=== PATIENT | female | born 1970 | race Caucasian/White ===

== ENCOUNTER 2023-10-30 18:47 | Emergency (ER) | payer OTHER, SELFPAY ==
[2023-10-30 19:00] VITALS: BP 121/68
[2023-10-30 19:21] LABS: % Basophils 0.5 % (0-2); % Eosinophils 1.4 % (0-6); % Immature Granulocytes 0.3 % (0-0.5); % Lymphocytes 19.8 % (20.5-51.1); % Monocytes 6.1 % (1.7-9.3); % Neutrophils 71.9 % (42.2-75.2); Absolute Basophils 0.1 10^3/uL (0-0.2); Absolute Eosinophils 0.1 10^3/uL (0-0.7); Absolute Monocytes 0.6 10^3/uL (0.1-0.6); Absolute Neutrophils 7.2 10^3/uL (1.4-6.5); Hematocrit 39.1 % (37.0-47.0); Hemoglobin 13.7 g/dL (12.0-16.0); Mean Corpuscular Hgb 28.6 pg (27.0-31.0); Mean Corpuscular Volume 81.6 fL (81.0-99.0); Mean Platelet Volume 9.6 fL (7.4-10.4); Nucleated Red Blood Cells % 0 %; Platelet Count 280 10^3/uL (130-400); Red Blood Cell Count 4.79 10^6/uL (4.20-5.40); Red Cell Dist. Width 12.2 % (11.5-14.5)
[2023-10-30 19:32] LABS: ALT (SGPT) 16 U/L (0-35); AST (SGOT) 27 U/L (14-36); Albumin 4.8 g/dl (3.5-5.0); Alkaline Phosphatase 115 U/L (38-126); Blood Urea Nitrogen 30 mg/dl (7-17); Calcium 9.7 mg/dl (8.4-10.2); Carbon Dioxide 23 mmol/L (22-30); Chloride 105 mmol/L (98-107); Glucose 98 mg/dl (70-99); Sodium 138 mmol/L (135-145); Total Bilirubin 0.7 mg/dl (0.2-1.3); Total Protein 7.5 g/dl (6.3-8.2); eGFR > 60.00
[2023-10-30 19:36] LABS: Urine Albumin Trace (Neg - Trace); Urine Bilirubin 1+ (Negative); Urine Character Clear (Clear); Urine Color Amber; Urine Glucose Negative (Negative); Urine Ketone 2+ (Negative); Urine Leukocyte 2+ (Negative); Urine Nitrite Negative (Negative); Urine Occult Blood Trace (Negative); Urine Urobilinogen 2+ (Neg - 1+)
[2023-10-30 19:55] LABS: Urine White Cell 16-20 /HPF (0-5)
[2023-10-30 21:42] VITALS: BMI 28.7
--- NOTE | 2023-10-30 21:56 | ED.GENMED ---
History of Present Illness
General
Chief Complaint: Abdominal Symptoms
Source: patient
Time Seen by Provider: 10/30/23 21:28
History of Present Illness
History of Present Illness:
53-year-old female presents to the emergency room complaining of abdominal pain. Patient has been having episodes of abdominal pain for some time. She has seen a [place] machine operator and had a colonoscopy but she was dissatisfied with her
interaction with a [place] machine operator. She had an episode of pain this morning which was severe. It made her double over. She was nauseous and dry heaving. The pain is present still but not as severe as it was earlier. Patient suffers from
intermittent constipation. She has had some urinary frequency and dysuria over the past 24 to 40 hours for which she is taken [id number] Azo. She has not had any previous abdominal surgery.
Past History
Past History
ED Past Medical History: None
ED Past Surgical History: None
Social History
Tobacco: Non-smoker
Personal:
Phy Exam
Physical Exam
Physical Exam:
General: Awake, Alert, Oriented X3. No acute distress.
Vitals: unremarkable
Head: Atraumatic
Eyes: Pupils equal, EOMI
Throat: Airway intact, no exudates
Neck: Trachea midline
Lungs: Clear and equal b/l
Heart: Regular rate, no murmurs
Abd: Soft, mild tenderness bilateral lower quadrants, no pulsatile mass
Neuro: Nonfocal
Skin: Warm, dry, no rash
Extremities: pulses equal b/l, no edema
Course
Orders/Labs/Results
Orders:
Orders
10/30/23 19:05
Electrocardiogram (*1) Urgent
Reason for Study: Vertigo / Dizzy
EKG- Treatment ONCE
10/30/23 19:14
Complete Blood Count/With Diff Urgent
Comprehensive Metabolic Panel Urgent
Urinalysis Reflex To Culture Urgent
Date Specimen was Collected: 10/30/23
Time Specimen was Collected: 19:05
Urine Microscopic Reflex Cult Urgent
Urine Culture Urgent
[place] Source: U
Specimen Description:
Date Specimen was Collected: 10/30/23
Time Specimen was Collected: 19:05
10/30/23 21:55
CT Abd/pelvis W Iv Cont Urgent
Comment:
Reason For Exam: lower abd pain
10/30/23 23:14
Amoxicillin 875 mg/Clav 125 mg [Augmentin 875 mg/125 mg] 1 tablet PO NOW STA
Abnormal Lab Results
10/30/23
19:14
Absolute Neuts (auto) 7.2 H 10^3/uL
(1.4-6.5)
Lymphocytes % 19.8 L %
(20.5-51.1)
BUN 30 H mg/dl
(7-17)
Urine Ketones 2+ A
(Negative)
Ur Occult Blood Reflex Trace A
(Negative)
Urine Bilirubin 1+ A
(Negative)
Urine Urobilinogen 2+ A
(Neg - 1+)
Leukocyte Esterase Rfl 2+ A
(Negative)
Urine RBC 3-6 A /HPF
(0-2)
Urine WBC (Reflex) 16-20 A /HPF
(0-5)
10/30/23 19:14
10/30/23 19:14
Vital Signs
Initial and Last Documented VS:
Initial Vital Signs
Temp Pulse Resp BP Pulse Ox
98.1 F 67 18 121/68 99
10/30/23 19:00 10/30/23 19:00 10/30/23 19:00 10/30/23 19:00 10/30/23 19:00
Last Documented Vital Signs
Temp Pulse Resp BP Pulse Ox
98.1 F 72 14 118/68 97
10/30/23 19:00 10/30/23 23:43 10/30/23 23:43 10/30/23 23:43 10/30/23 23:43
MDM/Problems Addressed
Differential Diagnosis Includes:
Urinary tract infection, colitis, kidney stone, diverticulitis
MDM/Problems Addressed:
Patient presents with urinary symptoms as well as abdominal pain. White count is normal. Mild prerenal azotemia creatinine is normal. Rest of her labs are unremarkable. Urinalysis is suggestive of a urinary tract infection with positive
leukocyte esterase. Also 1620 white blood cells per high-power field. CT of the abdomen pelvis showed a possible area of mild large bowel wall thickening of uncertain significance. Will treat the patient with Augmentin which would cover urinary
tract infection and possible bowel infection. Patient discharged to follow-up as an outpatient. She was given contact information for GI here.
*Radiology
Radiology exam reviewed: radiology read reviewed
*Pulse Oximetry
Patient hypoxic: no
*EKG
Interpreted by ED Provider?: Yes
Heart Rate: 68
Rate: normal
Rhythm: sinus
[place]: normal axis
Interval: normal interval
QRS Pattern: normal QRS
Ischemia: no ischemia
*Certified Addiction Counselor Interpretation
Rate: normal
Interpretation: normal
Heart Rate: 6
Rhythm: sinus
*Critical Care Note
Total Time (30-74mins, 75-104mins- exclusive of procedures): Not Applicable
Patient Management
Social determinants of health affecting care: Strong social support
ED Attending Note
-
Portions of this chart may have been created with voice recognition software.� Occasional wrong word or��sound alike� substitutions may have occurred due to the inherent limitations of voice recognition software.
Discharge Plan
Departure
Patient Disposition: Home (Routine Discharge)
Date of Disposition: 10/30/23
Time of Disposition: 23:17
Patient with high blood pressure during this ER visit?: No
Condition: Good
Discharge Problem:
UTI (urinary tract infection), Colitis
Instructions: Colitis (DC), Urinary Tract Infection, Adult ED
Prescriptions:
New
amoxicillin-pot clavulanate 875-125 mg tablet
1 tab PO BID Qty: 14 0RF
dicyclomine 20 mg tablet
20 mg PO QID PRN (Reason: abdominal pain) Qty: 20 0RF
No Action
levothyroxine [Synthroid] 137 MCG tablet
137 mcg PO DAILY@0700
Referrals:
Glenny Lawrence MD [Family Provider] -
Marixa Ham DO [Active] -
Interventions
Interventions:
*Risk Screen - Suicide Last Done: 10/30/23 21:42
*General Assessment Last Done: 10/30/23 19:00
*Neglect/Abuse Screening Last Done: 10/30/23 21:42
*ED COVID-19 Vaccine History Last Done: 10/30/23 19:00
*Nursing Disposition Last Done: 10/30/23 23:45
[place] Assessment Last Done: 10/30/23 21:42
Discharge Date and Time
Discharge Date/Time: 10/30/23 23:46
Print Language: YI
[2023-10-30] MEDS: AUGMENTIN 875 MG/125 MG 1 TABLET PO (23:37)
[2023-10-30 23:43] VITALS: BP 118/68
== END 2023-10-30 23:46 | disposition home or self-care (01) ==
LOC: EMR 18:47
PROVIDERS: Emergency Medicine; EMERGENCY PHYSICIAN Emergency Medicine; FAMILY PHYSICIAN Internal Medicine
DX: R10.9 Unspecified abdominal pain (principal); N39.0 Urinary tract infection, site not specified; K52.9 Noninfective gastroenteritis and colitis, unspecified; K59.00 Constipation, unspecified; Z88.1 Allergy status to other antibiotic agents; Z88.2 Allergy status to sulfonamides; Z88.8 Allergy status to other drugs, medicaments and biological substances; Z91.048 Other nonmedicinal substance allergy status
CPT/HCPCS: 99285; 74177; 80053; 81003; 81015; 85025; 87086; 93005; Q9967